=== PATIENT | male | born 1940 | race African-American/Black ===

== ENCOUNTER 2019-01-24 16:35 | Emergency (ER) | payer MEDICARE, MEDICAID ==
[~2019-01-24] VITALS: Ht 180.3 cm; Wt 87.0 kg
[~2019-01-24 16:35] MED LIST: AMLO1TAB31 PO
[2019-01-24 17:06] VITALS: BP 122/71
== END 2019-01-24 21:00 | disposition left against medical advice (07) ==
LOC: ER 16:35
DX: R10.9 Unspecified abdominal pain (principal); Z53.21 Procedure and treatment not carried out due to patient leaving prior to being seen by health care provider